=== PATIENT | male | born 1965 | race Caucasian/White ===

== ENCOUNTER → 2017-05-23 | Outpatient (CLI) | payer BC ==
[~2017-05-23] MED LIST: CIPR-249 PO; FLAG500T PO
--- NOTE | 2017-05-24 07:31 | REP ---
Clinical: Pain and lower extremity varicosities . Technique: Patino scale and color Doppler evaluation using linear high frequency transducer including reflux study. Findings: Ultrasound examination of the right and left lower extremity deep venous structures from the common femoral vein to the popliteal vein demonstrates normal compressibility flow and wave patterns in response to respiration and augmentation. There is no evidence for deep venous thrombosis. Reflux study of the right lower extremity demonstrates reflux through the deep venous system including common femoral vein, superficial femoral vein and popliteal vein. Reflux is also noted through the greater saphenous vein (GSV) and lower saphenous vein (LSV). Specifically, at the saphenofemoral junction the GSV measures 12.2 mm diameter with reflux duration of 3.2 seconds; the mid GSV measures 6.3 mm diameter with reflux duration of 3.3 seconds; distal GSV at the knee measures 4.9 mm diameter with reflux duration of 3.9 seconds. LSV measures 3.3 mm diameter with reflux duration 3.6 seconds. Collateral vessels at the level of the proximal calf are identified and exhibit reflux. Reflux study of the left lower extremity demonstrates reflux through the greater saphenous vein (GSV) and lower saphenous vein (LSV). Specifically, at the saphenofemoral junction the GSV measures 7.6 mm diameter with reflux duration of 4.5 seconds; the mid GSV measures 4.9 mm diameter with reflux duration of 1.5 seconds; distal GSV at the knee measures 4.5 mm diameter with reflux duration of 2.6 seconds. No reflux noted through the deep venous system or the LSV. Collateral vessels from the distal greater saphenous vein are identified and exhibit reflux during respiration. Impression: No evidence for deep venous thrombosis. Bilateral lower extremity reflux as described above. Signed by Dipak Mcintyre MD 05/24/2017 07:22 A
== END ==
LOC: M RAD 13:03
PROVIDERS: ATTEND Surgery Vascular Surgery
DX: I83.893 Varicose veins of bilateral lower extremities with other complications (principal)

== ENCOUNTER → 2017-06-20 | Outpatient (REF) ==
--- NOTE | 2017-06-20 09:34 | PFTRPT ---
Tech: Maryellen Holley IT RISK ANALYST Age: 52 Sex: Male Race: Height: 69.00 Inches Weight: 200.00 Lbs BSA: 2.07 PULMONARY FUNCTION REPORT ORDERING PROVIDER: NANDO Goddard DATE OF SERVICE: 06/20/17 SPIROMETRY: Pre and post bronchodilator study of excellent technical quality. The forced vital capacity is normal. The FEV1 is in proportion. The obstructive index is, therefore, normal. FLOW VOLUME LOOP: The expiratory limb of the flow volume loop is normal. LUNG VOLUMES: The total lung capacity is normal. The residual volume raises a question of air trapping. DIFFUSION CAPACITY: The diffusion capacity is normal. HEMOGLOBIN: No hemoglobin is available for correction. AIRWAY MECHANICS: Airways resistance and conductance are normal. IMPRESSION: Cannot rule out a degree of air trapping; otherwise, normal study. MTDD
== END ==
LOC: EDSTATUS 06-07 09:42 → M CARPUL 08:41
PROVIDERS: ATTEND Nurse Practitioner Adult Health
DX: Z02.89 Encounter for other administrative examinations (principal)

== ENCOUNTER 2018-06-01 06:38 | Emergency (ER) | payer BC ==
[2018-06-01] MEDS: LISSAMINE GREEN OPHTH 1.5 MG STRIP OD (07:12)
[2018-06-01] MEDS: TETRACAINE 0.5% OPHTH SOLN 4ML OD (07:12)
[2018-06-01] MEDS: ACETAMINOPHEN 325 MG TAB PO (07:45)
[2018-06-01] MEDS: ERYTHROMYCIN OPHTH OINT OD (07:45)
== END 2018-06-01 08:21 | disposition home or self-care (01) ==
LOC: M ED 06:38
DX: S05.01XA Injury of conjunctiva and corneal abrasion without foreign body, right eye, initial encounter (principal); X58.XXXA Exposure to other specified factors, initial encounter; Y92.89 Other specified places as the place of occurrence of the external cause
CPT/HCPCS: 99283

== ENCOUNTER → 2018-06-07 | Outpatient (REF) | payer BC | LOC: M CARPUL 08:05 | DX: Z00.00 Encounter for general adult medical examination without abnormal findings (principal) ==

== ENCOUNTER → 2019-10-19 | Outpatient (CLI) | payer BC ==
[~2019-10-19] MED LIST changes: +ERYT1OIN26 OD; +RA T500C2 PO
--- NOTE | 2019-10-19 18:21 | REP ---
Right lower extremity deep vein duplex ultrasound: The deep veins demonstrate normal compression, normal Doppler color flow and normal Doppler waveforms with respiration and augmentation from the popliteal vein to the common femoral vein. 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 There is slow flow through this area, however there is no thrombus. The aneurysm compresses. Impression: There is no deep vein thrombus. Electronically Signed by Gary Solis MD 10/19/2019 06:13 P
--- NOTE | 2019-10-20 06:50 | REP ---
Right groin soft tissue ultrasound: History: Lymph nodes versus DVT. Right upper leg swelling. Localized swelling mass and lump. Findings: The right groin palpable area is scanned. There are two lymph nodes in the right groin measuring 2.5 x 0.8 x 1.4 cm and 0.7 x 0.4 x 0.7 cm. These have preserved echogenic hilar architecture. At the level of the lump, there is also evidence of a venous aneurysmal dilation of the greater saphenous vein proximally. This measures 2.1 cm AP x 4.3 cm in length. The greater saphenous vein measures 7 mm in AP dimension distal to the aneurysmal segment and 6 mm in AP dimension above the aneurysmal segment. Impression: Two normal-appearing lymph nodes in the right groin. 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 Electronically Signed by Maximilian Harris MD 10/20/2019 08:33 A
== END ==
LOC: M RAD 14:55
PROVIDERS: ATTEND Surgery
DX: I72.9 Aneurysm of unspecified site (principal); R22.9 Localized swelling, mass and lump, unspecified; M79.604 Pain in right leg

== ENCOUNTER → 2019-11-16 | Outpatient (CLI) | payer BC ==
--- NOTE | 2019-11-16 08:21 | REP ---
Bilateral lower extremity deep vein duplex ultrasound: The deep veins demonstrate normal compression, normal Doppler color flow and normal Doppler waveforms with respiration augmentation from the popliteal veins to the common femoral veins bilaterally. However, all of these wave forms are pulsatile bilaterally. This may indicate high right-sided cardiac pressures. Impression: There is no deep vein thrombus in the right or left lower extremities. However, all venous wave forms are pulsatile. This may indicate high right sided cardiac meters. Lower Extremity Venous Reflux: Positive reflux is greater than 0.5 seconds. Right Reflux Left Reflux CFV Reflux no no Ant. Acc. GSV Present no no Reflux no no Greater saph/fem junction -- mm yes 5.8 mm yes Greater saph vein mid thigh -- mm yes 3.2 mm yes Greater saph vein at knee --mm yes 3.3 mm yes SFV PROX no no SFV MID no no SFV DISTAL no no POPLITEAL VEIN no no LSV 3.4. mm no 1.6 mm no Reflux duration : Greater saphenous vein at the saphenous/femoral junction: Right 1.6 seconds, left 0.9 seconds. Greater saphenous vein and mid thigh a: Right to 0.6 seconds, left 3.0 seconds. Greater saphenous vein and knee: Right 1.8 seconds left 2.0 seconds. There is pulsatile venous flow throughout the lower extremities bilaterally, likely secondary to increased right sided cardiac pressure. Reflux is observed with the patient standing during Valsalva maneuver. Electronically Signed by Gary Solis MD 11/16/2019 08:12 A
== END ==
LOC: M RAD 06:08
PROVIDERS: ATTEND Physician Assistant
DX: I83.811 Varicose veins of right lower extremity with pain (principal); I87.2 Venous insufficiency (chronic) (peripheral)

== ENCOUNTER 2019-11-22 10:08 | Day surgery (SDC) | payer BC ==
[~2019-11-22] VITALS: Ht 177.8 cm; Wt 81.6 kg
[~2019-11-22 10:08] MED LIST changes: +NS 1,000 ML IV ONE
[2019-11-22] MEDS ORDERED: LIDOCAINE 2% INJ 100 MG/5 ML SDV (FOR ANES.) As Ordered ONE (10:18)
[2019-11-22] MEDS ORDERED: propofoL 200 MG/20 ML VIAL As Ordered ONE (11:55)
--- NOTE | 2019-11-22 12:13 | ROOR ---
Patient Name: Luis Putnam Procedure Date: 11/22/2019 11:54 AM Date of : 1965 Age: 54 Room: [facility] Gender: Male Note Status: Finalized Procedure: Colonoscopy Indications: Screening patient at increased risk: Family history of colorectal cancer in multiple 1st-degree relatives Providers: Jax Smith Jr, MD Referring MD: Domitila Still NP Requesting Provider: Medicines: Propofol per Anesthesia Complications: No immediate complications. Procedure: Pre-Anesthesia Assessment: - Prior to the procedure, a History and Physical was performed, and patient medications and allergies were reviewed. The patient is competent. The risks and benefits of the procedure and the sedation options and risks were discussed with the patient. All questions were answered and informed consent was obtained. Patient identification and proposed procedure were verified by the physician and the nurse in the pre-procedure area and in the procedure room. Mental Status Examination: alert and oriented. Airway Examination: normal oropharyngeal airway and neck mobility. Respiratory Examination: clear to auscultation. CV Examination: normal. ASA Grade Assessment: II - A patient with mild systemic disease. After reviewing the risks and benefits, the patient was deemed in satisfactory condition to undergo the procedure. The anesthesia plan was to use moderate sedation / analgesia (conscious sedation). Immediately prior to administration of medications, the patient was re-assessed for adequacy to receive sedatives. The heart rate, respiratory rate, oxygen saturations, blood pressure, adequacy of pulmonary ventilation, and response to care were monitored throughout the procedure. The physical status of the patient was re-assessed after the procedure. The Colonoscope was introduced through the anus and advanced to the cecum, identified by appendiceal orifice and ileocecal valve. The colonoscopy was performed without difficulty. The patient tolerated the procedure well. The quality of the bowel preparation was adequate. Findings: The rectum, recto-sigmoid colon, sigmoid colon, descending colon, transverse colon, ascending colon, cecum, appendiceal orifice and ileocecal valve appeared normal. Impression: - The rectum, recto-sigmoid colon, sigmoid colon, descending colon, transverse colon, ascending colon, cecum, appendiceal orifice and ileocecal valve are normal. - No specimens collected. Recommendation: - Discharge patient to home (ambulatory). - Repeat colonoscopy in 5 years for screening purposes. Jax Smith MD Jax Smith Jr, MD 11/22/2019 12:13:25 PM Electronically signed by Jax Smith Jr, MD Number of Addenda: 0 Note Initiated On: 11/22/2019 11:54 AM Estimated Blood Loss: Estimated blood loss: none.
[2019-11-22 13:35] VITALS: BP 131/84
== END 2019-11-22 12:50 | disposition home or self-care (01) ==
LOC: M OPP 10:08
PROVIDERS: ATTEND Surgery
DX: Z12.11 Encounter for screening for malignant neoplasm of colon (principal); Z80.0 Family history of malignant neoplasm of digestive organs

== ENCOUNTER → 2020-03-14 | Outpatient (REF) | payer BC ==
[~2020-03-14] MED LIST changes: -ERYT1OIN26 OD; +ERYT5OIN25 OD; -NS 1,000 ML IV ONE
[2020-03-14 18:14] LABS: CRYSTALS, BODY FLUID NONE SEEN (NONE SEEN); SOURCE, BODY FLUID CRYSTALS LFT KNEE
[2020-03-14 18:16] LABS: SOURCE, BODY FLUID LFT KNEE; SYNOVIAL FLUID COLOR YELLOW (YELLOW)
[2020-03-14 18:44] LABS: SOURCE, BODY FLUID GLUCOSE LFT KNEE
[2020-03-15 06:37] LABS: BODY FLUID RHEUMATOID SCREEN NEGATIVE (NEGATIVE)
[2020-03-15 06:39] LABS: MUCIN CLOT TEST 4+ (4+)
== END ==
LOC: M LAB REF 17:04
PROVIDERS: ATTEND Physician Assistant
DX: M71.22 Synovial cyst of popliteal space [Baker], left knee (principal); M25.462 Effusion, left knee

== ENCOUNTER → 2020-03-17 | Outpatient (CLI) | payer BC ==
[2020-03-17 08:00] LABS: BASO % 0.6 % (0.0-1.0); EOS # 0.1 10^3/uL (0.0-0.5); EOS % 1.5 % (0.0-3.0); HEMATOCRIT 41.5 % (42.0-52.0); HEMOGLOBIN 14.2 g/dl (13.5-17.5); LYMPH # 1.6 10^3/uL (1.5-5.0); LYMPH % 32.2 % (24.0-44.0); MEAN CORPUSCULAR HEMOGLOBIN 33.6 pg (27.0-33.0); MEAN CORPUSCULAR HGB CONC 34.2 g/dl (32.0-36.5); MEAN CORPUSCULAR VOLUME 98.3 fl (80.0-96.0); MONO # 0.6 10^3/uL (0.0-0.8); MONO % 13.1 % (0.0-5.0); NEUTROPHILS # 2.5 10^3/uL (1.5-8.5); NEUTROPHILS % 52.4 % (36.0-66.0); PLATELET COUNT, AUTOMATED 263 10^3/uL (150-450); RED BLOOD COUNT 4.22 10^6/uL (4.30-6.10); WHITE BLOOD COUNT 4.8 10^3/uL (4.0-10.0)
[2020-03-17 08:55] LABS: ERYTHROCYTE SEDIMENTATION RATE 12 mm/hr (0-20)
== END ==
LOC: M LAB 07:18
PROVIDERS: ATTEND Orthopaedic Surgery Sports Medicine
DX: M71.22 Synovial cyst of popliteal space [Baker], left knee (principal)

== ENCOUNTER → 2020-03-19 | Outpatient (CLI) | payer BC ==
[2020-03-20 19:07] LABS: Lyme Disease IgG/IgM Antibodie <0.91 ISR (0.00-0.90); Lyme Disease IgM Ab Quantitati <0.80 index (0.00-0.79)
== END ==
LOC: M LAB 10:01
PROVIDERS: ATTEND Orthopaedic Surgery Sports Medicine
DX: M71.22 Synovial cyst of popliteal space [Baker], left knee (principal)

== ENCOUNTER 2021-02-03 11:07 | Emergency (ER) | payer BC ==
[~2021-02-03] VITALS: Ht 180.3 cm; Wt 80.5 kg
[2021-02-03] MEDS ORDERED: NS 1,000 ML IV ONE (12:10)
[2021-02-03 12:38] LABS: APPEARANCE, URINE CLEAR (CLEAR); BACTERIA, URINE AUTO NEGATIVE (NEGATIVE); BILIRUBIN, URINE AUTO NEGATIVE (NEGATIVE); BLOOD, URINE BLOOD NEGATIVE (NEGATIVE); COLOR, URINE YELLOW (YELLOW); GLUCOSE, URINE (UA) AUTO NEGATIVE (NEGATIVE); KETONE, URINE AUTO 1+ mg/dL (NEGATIVE); LEUKOCYTE ESTERASE, URINE AUTO NEGATIVE (NEGATIVE); MUCUS, URINE SMALL (NEGATIVE); NITRITE, URINE AUTO NEGATIVE (NEGATIVE); PROTEIN, URINE AUTO 1+ mg/dL (NEGATIVE); RBC, URINE AUTO 1 /HPF (0-3); SPECIFIC GRAVITY URINE AUTO 1.025 (1.002-1.035); SQUAMOUS EPITHELIAL CELL UR AU 0 /HPF (0-6); UROBILINOGEN, URINE AUTO 0.2 mg/dL (0.0-2.0); WBC, URINE AUTO 1 /HPF (0-3)
[2021-02-03 12:43] LABS: BASO % 0.4 % (0.0-1.0); EOS % 0.2 % (0.0-3.0); HEMATOCRIT 44.4 % (42.0-52.0); LYMPH # 0.7 10^3/uL (1.5-5.0); LYMPH % 14.4 % (24.0-44.0); MEAN CORPUSCULAR HEMOGLOBIN 32.8 pg (27.0-33.0); MEAN CORPUSCULAR HGB CONC 33.8 g/dl (32.0-36.5); MEAN CORPUSCULAR VOLUME 97.2 fl (80.0-96.0); MONO # 0.5 10^3/uL (0.0-0.8); MONO % 9.7 % (2.0-8.0); NEUTROPHILS # 3.5 10^3/uL (1.5-8.5); NEUTROPHILS % 75.1 % (36.0-66.0); PLATELET COUNT, AUTOMATED 123 10^3/uL (150-450); RED BLOOD COUNT 4.57 10^6/uL (4.30-6.10); WHITE BLOOD COUNT 4.7 10^3/uL (4.0-10.0)
[2021-02-03 13:19] LABS: ALBUMIN 4.1 GM/DL (3.2-5.2); ALT/SGPT 158 U/L (12-78); BILIRUBIN,DIRECT 0.1 MG/DL (0.0-0.2); BILIRUBIN,TOTAL 0.6 MG/DL (0.2-1.0); BLOOD UREA NITROGEN 14 MG/DL (7-18); CALCIUM LEVEL 9.1 MG/DL (8.5-10.1); CARBON DIOXIDE LEVEL 28 MEQ/L (21-32); CHLORIDE LEVEL 102 MEQ/L (98-107); CREATININE FOR GFR 0.58 MG/DL (0.70-1.30); GLOMERULAR FILTRATION RATE > 60.0 (>56); GLUCOSE, FASTING 89 MG/DL (70-100); LIPASE 80 U/L (73-393); POTASSIUM SERUM 5.9 MEQ/L (3.5-5.1); SODIUM LEVEL 137 MEQ/L (136-145); TOTAL PROTEIN 8.5 GM/DL (6.4-8.2)
[2021-02-03 14:29] LABS: HEPATITIS B SURFACE ANTIGEN NEGATIVE (NEGATIVE)
--- NOTE | 2021-02-03 14:52 | REP ---
INDICATION: nausea vomiting, elevated lfts. COMPARISON: None. TECHNIQUE: Real-time sonographic evaluation of right upper quadrant performed. FINDINGS: The gallbladder demonstrates no evidence of intraluminal sludge or calculi, wall thickening or pericholecystic fluid. There is no intrahepatic or extrahepatic biliary dilatation, common bile duct measures 4 mm in maximum diameter. Liver demonstrates diffuse heterogeneous increased echotexture compatible with diffuse fatty infiltration. Pancreas is grossly unremarkable, not optimally visualized due to overlying bowel gas. The right kidney demonstrates no hydronephrosis, with a normal size of 11.3 cm in length. No free fluid is seen. IMPRESSION: Diffuse fibrofatty infiltration of the liver. <Electronically signed by Gary Patino > 02/03/21 [id number]
[2021-02-03 14:58] LABS: HEPATITIS B CORE ANTIBODY IGM NEGATIVE (NEGATIVE)
[2021-02-03 14:59] LABS: HEPATITIS A ANTIBODY IGM NEGATIVE (NEGATIVE)
[2021-02-03] MEDS ORDERED: ONDA4TAB6 PO (15:26)
[2021-02-03 15:29] VITALS: BP 153/92
== END 2021-02-03 15:37 | disposition home or self-care (01) ==
LOC: M ED 11:07
DX: R11.2 Nausea with vomiting, unspecified (principal); R19.7 Diarrhea, unspecified; K76.0 Fatty (change of) liver, not elsewhere classified; R94.5 Abnormal results of liver function studies

== ENCOUNTER 2021-03-22 15:06 | Emergency (ER) | payer BC ==
[~2021-03-22] VITALS: Ht 172.7 cm; Wt 76.3 kg
[~2021-03-22 15:06] MED LIST changes: +ONDA4TAB6 PO
--- NOTE | 2021-03-22 15:58 | REP ---
INDICATION: ams COMPARISON: None. TECHNIQUE: Axial noncontrast images from the skull base to the vertex with coronal reformations. This CT examination was performed using the following dose reduction techniques: Automated exposure control, adjustment of mA and/or kv according to the patient's size, and use of iterative reconstruction technique. FINDINGS: The ventricles, sulci, and cisterns are normal in position and appearance. Patino-white differentiation is maintained. No acute intracranial hemorrhage, mass/mass effect, pathology or trauma/injury. No evidence for acute infarction. No extra-axial fluid collection. Calvarium is intact. Paranasal sinuses and mastoid air cells are clear. IMPRESSION: Normal noncontrast head CT. No evidence for acute intracranial pathology or trauma/injury. <Electronically signed by Dipak Mcintyre > 03/22/21 [id number]
--- NOTE | 2021-03-22 15:59 | REP ---
INDICATION: trauma COMPARISON: None. TECHNIQUE: Axial noncontrast images from the skull base to the thoracic inlet with coronal and sagittal re-formations This CT examination was performed using the following dose reduction techniques: Automated exposure control, adjustment of mA and/or kv according to the patient's size, and use of iterative reconstruction technique. FINDINGS: Alignment is maintained. Advanced multilevel degenerative changes include osteophytosis, endplate sclerosis and disc space narrowing along with facet hypertrophy. Spinal canal is patent. Posterior elements and spinous processes are intact. There is no evidence for acute fracture/compression injury or subluxation. IMPRESSION: Advanced multilevel degenerative spondylosis. <Electronically signed by Dipak Mcintyre > 03/22/21 [id number]
[2021-03-22 16:28] LABS: BASO % 0.6 % (0.0-1.0); EOS % 0.2 % (0.0-3.0); HEMATOCRIT 42.6 % (42.0-52.0); HEMOGLOBIN 14.6 g/dl (13.5-17.5); LYMPH % 19.5 % (24.0-44.0); MEAN CORPUSCULAR HEMOGLOBIN 33.6 pg (27.0-33.0); MEAN CORPUSCULAR HGB CONC 34.3 g/dl (32.0-36.5); MEAN CORPUSCULAR VOLUME 98.2 fl (80.0-96.0); MONO # 0.5 10^3/uL (0.0-0.8); MONO % 10.2 % (2.0-8.0); NEUTROPHILS # 3.7 10^3/uL (1.5-8.5); NEUTROPHILS % 69.3 % (36.0-66.0); PLATELET COUNT, AUTOMATED 159 10^3/uL (150-450); RED BLOOD COUNT 4.34 10^6/uL (4.30-6.10); WHITE BLOOD COUNT 5.3 10^3/uL (4.0-10.0)
[2021-03-22 16:55] LABS: ERYTHROCYTE SEDIMENTATION RATE 8 mm/hr (0-20)
[2021-03-22 16:56] LABS: AMPHETAMINES LEVEL URINE NEGATIVE (NEGATIVE); BARBITURATES URINE NEGATIVE (NEGATIVE); BENZODIAZEPINES URINE NEGATIVE (NEGATIVE); CANNABINOIDS URINE NEGATIVE (NEGATIVE); COCAINE METABOLITE URINE NEGATIVE (NEGATIVE); METHADONE URINE NEGATIVE (NEGATIVE); OPIATES URINE NEGATIVE (NEGATIVE); PHENCYCLIDINE URINE NEGATIVE (NEGATIVE)
--- NOTE | 2021-03-22 16:58 | REP ---
INDICATION: Altered Mental Status COMPARISON: 07/22/2016 TECHNIQUE: Portable AP view of the chest FINDINGS: The mediastinum and cardiac silhouette are stable and within normal limits for portable technique. The lung russell are clear without acute consolidation, effusion, or pneumothorax. Skeletal structures are intact. IMPRESSION: No acute cardiopulmonary process appreciated. <Electronically signed by Dipak Mcintyre > 03/22/21 [id number]
[2021-03-22 17:23] LABS: ALBUMIN 4.2 GM/DL (3.2-5.2); ALT/SGPT 98 U/L (12-78); BILIRUBIN,DIRECT 0.2 MG/DL (0.0-0.2); BILIRUBIN,TOTAL 0.4 MG/DL (0.2-1.0); C REACTIVE PROTEIN QUANTITATIV < 0.30 MG/DL (0.00-0.30); ETHYL ALCOHOL (ETHANOL) 0.405 % (0.000-0.010); TOTAL PROTEIN 7.8 GM/DL (6.4-8.2)
[2021-03-22 17:33] VITALS: BP 134/81
--- NOTE | 2021-03-22 21:17 | ECGEPIP ---
[facility] - ED Test Date: 2021-03-22 Pat Name: GEOVANNY EMERY Department: Room: - Gender: Male [employer]it[employer]: : 1965 Requested By: Ignacio Lawrence Order Number: [id number] Reading MD: Phyllis Lyons Measurements Intervals [place] Rate: 108 P: 45 VA: 154 QRS: 41 QRSD: 90 T: 32 QT: 358 QTc: 479 Interpretive Statements Sinus tachycardia NSTTW abnormalities prolonged qtc No prior Electronically Signed on 03-22-2021 21:17:31 EDT by Phyllis Lyons
== END 2021-03-22 17:57 | disposition home or self-care (01) ==
LOC: M ED 15:06
DX: F10.129 Alcohol abuse with intoxication, unspecified (principal); Y90.2 Blood alcohol level of 40-59 mg/100 ml; S00.03XA Contusion of scalp, initial encounter; X58.XXXA Exposure to other specified factors, initial encounter; Y92.89 Other specified places as the place of occurrence of the external cause

== ENCOUNTER → 2021-05-29 | Outpatient (REF) | LOC: M LABSMTC 10:10 | PROVIDERS: ATTEND Pediatrics | DX: Z20.822 Contact with and (suspected) exposure to COVID-19 (principal) ==

== ENCOUNTER → 2021-09-02 | Outpatient (REF) | payer BC | LOC: M LAB REF 16:15 | PROVIDERS: ATTEND Internal Medicine | DX: R19.7 Diarrhea, unspecified (principal) ==

== ENCOUNTER → 2021-09-21 | Outpatient (CLI) | payer BC ==
[~2021-09-21] MED LIST changes: +GASTROGRAFIN SOLUTION 30ML (Q9963) As Ordered ONE; +ISOVUE-370 76% 100ML VIAL As Ordered ONE
== END ==
LOC: M RAD 14:23
PROVIDERS: ATTEND Surgery
DX: R10.84 Generalized abdominal pain (principal); R19.7 Diarrhea, unspecified
CPT/HCPCS: 74177; Q9963; Q9967

== ENCOUNTER → 2021-12-31 | Outpatient (REF) ==
[~2021-12-31] MED LIST changes: -GASTROGRAFIN SOLUTION 30ML (Q9963) As Ordered ONE; -ISOVUE-370 76% 100ML VIAL As Ordered ONE
== END ==
LOC: M EMP 07:21
PROVIDERS: ATTEND Family Medicine
DX: Z20.822 Contact with and (suspected) exposure to COVID-19 (principal)

== ENCOUNTER → 2022-03-08 | Outpatient (REF) ==
[2022-03-08 09:43] LABS: RSV AMPLIFICATION NEGATIVE (NEGATIVE)
== END ==
LOC: M EMP 08:02
PROVIDERS: ATTEND Family Medicine
DX: Z11.52 Encounter for screening for COVID-19 (principal)

== ENCOUNTER 2022-04-19 10:18 | Emergency (ER) | payer OTHER, BC ==
[~2022-04-19] VITALS: Ht 175.3 cm; Wt 79.1 kg
[2022-04-19 10:18] VITALS: BP 134/87
[2022-04-19] MEDS ORDERED: BOOSTRIX/ADACEL VACCINE (DIPHTH/PERTUSS/ACELL/TETANUS) 0.5ML SYR IM ONE (11:15)
[2022-04-19] MEDS ORDERED: BACITRACIN OINTMENT 30GM TUBE TOP ONE (11:30)
[2022-04-19] MEDS ORDERED: LIDOCAINE 2% MDV 20ML VIAL SC ONE (11:55)
== END 2022-04-19 15:05 | disposition home or self-care (01) ==
LOC: M ED 10:18
DX: S61.011A Laceration without foreign body of right thumb without damage to nail, initial encounter (principal); W26.8XXA Contact with other sharp object(s), not elsewhere classified, initial encounter; Y92.89 Other specified places as the place of occurrence of the external cause

== ENCOUNTER → 2022-04-23 | Outpatient (REF) | LOC: M EMP 09:56 | PROVIDERS: ATTEND Family Medicine | DX: Z11.52 Encounter for screening for COVID-19 (principal) ==

== ENCOUNTER → 2022-06-11 | Outpatient (REF) | payer BC ==
[2022-06-11 18:08] LABS: VITAMIN B12 LEVEL 375 PG/ML (247-911)
== END ==
LOC: M LAB REF 16:01
PROVIDERS: ATTEND Internal Medicine
DX: R41.3 Other amnesia (principal)

== ENCOUNTER → 2022-06-24 | Outpatient (CLI) | payer BC | LOC: M PLAIMG 12:53 | PROVIDERS: ATTEND Internal Medicine | DX: F03.90 Unspecified dementia, unspecified severity, without behavioral disturbance, psychotic disturbance, mood disturbance, and anxiety (principal) ==

== ENCOUNTER → 2022-07-06 | Outpatient (CLI) | payer BC | LOC: M SOG 08:20 | PROVIDERS: ATTEND Orthopaedic Surgery | DX: M25.512 Pain in left shoulder (principal); M54.2 Cervicalgia ==

== ENCOUNTER 2022-07-22 09:48 | Outpatient (RCR) | payer BC | END 2022-07-26 23:59 | disposition home or self-care (01) | LOC: M PT 09:48 | PROVIDERS: ATTEND Orthopaedic Surgery | DX: M25.512 Pain in left shoulder (principal); M67.814 Other specified disorders of tendon, left shoulder ==

== ENCOUNTER → 2022-08-09 | Outpatient (REF) ==
[2022-08-09 12:15] LABS: RSV AMPLIFICATION NEGATIVE (NEGATIVE)
== END ==
LOC: M EMP 10:50
PROVIDERS: ATTEND Family Medicine
DX: Z20.828 Contact with and (suspected) exposure to other viral communicable diseases (principal)

== ENCOUNTER 2022-08-23 07:39 | Outpatient (RCR) | payer BC | END 2022-08-25 | LOC: M PT 07:39 | PROVIDERS: ATTEND Orthopaedic Surgery | DX: M25.512 Pain in left shoulder (principal); M67.814 Other specified disorders of tendon, left shoulder ==

== ENCOUNTER → 2022-09-10 | Outpatient (REF) | payer BC | LOC: M LAB REF 16:52 | PROVIDERS: ATTEND Internal Medicine | DX: E87.1 Hypo-osmolality and hyponatremia (principal) ==

== ENCOUNTER → 2022-09-29 | Outpatient (REF) | LOC: M EMP 09:38 | PROVIDERS: ATTEND Family Medicine | DX: Z11.52 Encounter for screening for COVID-19 (principal) ==

== ENCOUNTER → 2023-01-05 | Outpatient (CLI) | payer BC | LOC: M RAD 10:51 | PROVIDERS: ATTEND Internal Medicine | DX: R06.02 Shortness of breath (principal) ==

== ENCOUNTER → 2023-02-10 | Outpatient (REF) ==
[2023-02-10 11:34] LABS: RSV AMPLIFICATION NEGATIVE (NEGATIVE)
== END ==
LOC: M EMP 08:45
PROVIDERS: ATTEND Family Medicine
DX: J11.1 Influenza due to unidentified influenza virus with other respiratory manifestations (principal)

== ENCOUNTER → 2023-03-11 | Outpatient (REF) | payer BC ==
[2023-03-11 17:53] LABS: FERRITIN 276.7 NG/ML (10.5-307.3)
[2023-03-11 17:54] LABS: PERCENT SATURATION 30.9 % (19.7-50.0)
== END ==
LOC: M LAB REF 16:43
PROVIDERS: ATTEND Internal Medicine
DX: R74.01 Elevation of levels of liver transaminase levels (principal)

== ENCOUNTER → 2023-03-23 | Outpatient (CLI) | payer BC | LOC: M RAD 07:24 | PROVIDERS: ATTEND Internal Medicine | DX: R74.01 Elevation of levels of liver transaminase levels (principal) ==

== ENCOUNTER → 2023-07-21 | Outpatient (REF) | payer BC ==
[2023-07-21 15:32] LABS: C REACTIVE PROTEIN QUANTITATIV < 0.40 MG/DL (<1.0)
[2023-07-21 15:33] LABS: IMMUNOGLOBULIN A 230.5 MG/DL (40-350)
[2023-07-21 18:05] LABS: HEPATITIS B CORE ANTIBODY IGM NEGATIVE (NEGATIVE); HEPATITIS C VIRUS ABY INDEX 0.06 INDEX (<0.8)
== END ==
LOC: M LAB REF 12:09
PROVIDERS: ATTEND Internal Medicine
DX: K76.0 Fatty (change of) liver, not elsewhere classified (principal); R74.01 Elevation of levels of liver transaminase levels; E87.1 Hypo-osmolality and hyponatremia; I83.813 Varicose veins of bilateral lower extremities with pain

== ENCOUNTER → 2023-08-17 | Outpatient (REF) ==
[2023-08-17 14:57] LABS: RSV AMPLIFICATION NEGATIVE (NEGATIVE)
== END ==
LOC: M EMP 13:33
PROVIDERS: ATTEND Family Medicine
DX: Z11.52 Encounter for screening for COVID-19 (principal)

== ENCOUNTER → 2023-08-19 | Outpatient (REF) ==
[2023-08-19 15:34] LABS: RSV AMPLIFICATION NEGATIVE (NEGATIVE)
== END ==
LOC: M EMP 12:09
PROVIDERS: ATTEND Family Medicine
DX: Z20.828 Contact with and (suspected) exposure to other viral communicable diseases (principal)

== ENCOUNTER → 2023-11-01 | Outpatient (CLI) | payer BC | LOC: M OUTALCOH 13:45 | PROVIDERS: ATTEND Psychiatry & Neurology Psychiatry | DX: Z03.89 Encounter for observation for other suspected diseases and conditions ruled out (principal) ==

== ENCOUNTER 2024-11-08 13:08 | Inpatient (IN) | payer OTHER ==
[~2024-11-08] VITALS: Ht 182.9 cm; Wt 75.0 kg
[~2024-11-08 13:08] MED LIST changes: -AMIO100T4 PO; -BISO5TAB14 PO; -CALC500T61 PO; -ESSETAB4 PO; -FOLI1TAB11 PO; -MAGN400T2 PO; -POTA-298 PO; -TALK1KIT MC; -THIA100TA PO
[2024-11-08 14:03] LABS: BASO % 0.1 % (0.0-1.0); EOS % 0.1 % (0.0-3.0); HEMATOCRIT 36.5 % (42.0-52.0); HEMOGLOBIN 13.2 g/dl (13.5-17.5); MEAN CORPUSCULAR HEMOGLOBIN 38.2 pg (27.0-33.0); MEAN CORPUSCULAR HGB CONC 36.2 g/dl (32.0-36.5); MEAN CORPUSCULAR VOLUME 105.5 fl (80.0-96.0); MONO # 0.7 10^3/uL (0.0-0.8); MONO % 9.8 % (2.0-8.0); NEUTROPHILS # 5.2 10^3/uL (1.5-8.5); NEUTROPHILS % 74.4 % (36.0-66.0); PLATELET COUNT, AUTOMATED 192 10^3/uL (150-450); RED BLOOD COUNT 3.46 10^6/uL (4.30-6.10)
[2024-11-08 14:30] LABS: CPK CREATINE PHOSPHOKINASE 116 U/L (46-171)
[2024-11-08] MEDS: POTASSIUM CHLORIDE 10MEQ SR TABLET PO ONE ×3 (14:37→21:56)
[2024-11-08] MEDS: NS (Normal Saline) 0.9% 1,000 ML IV SCH (14:37)
[2024-11-08] MEDS: KCL 10MEQ/100ML SWI (KRUN) 10 MEQ in IV 1 EA IV SCH ×2 (14:37→23:02)
[2024-11-08 15:02] LABS: HIV 1&2 SCREEN NEGATIVE (NEGATIVE)
[2024-11-08] MEDS ORDERED: HOME MED LIST COMPLETE! XX SCH (15:20)
[2024-11-08 15:31] LABS: ALBUMIN 3.1 G/DL (3.2-5.2); ALKALINE PHOSPHATASE 159 U/L (40-129); ALT/SGPT 40 U/L (7.0-40); AST/SGOT 91 U/L (<34); BILIRUBIN,TOTAL 2.5 MG/DL (0.3-1.2); BLOOD UREA NITROGEN 9 MG/DL (9-23); CALCIUM LEVEL 8.5 MG/DL (8.3-10.6); CARBON DIOXIDE LEVEL 32 MMOL/L (20-31); CHLORIDE LEVEL 91 MMOL/L (98-107); CK-MB VALUE MASS 1.1 NG/ML (<3.6); CREATININE FOR GFR 0.42 MG/DL (0.70-1.30); GLOMERULAR FILTRATION RATE > 60.0 (>49); GLUCOSE, FASTING 123 MG/DL (74-106); MB/CK RELATIVE INDEX 0.94 (< OR =4); POTASSIUM SERUM 2.4 MMOL/L (3.5-5.1); SODIUM LEVEL 140 MMOL/L (136-145); TOTAL PROTEIN 7.3 G/DL (5.7-8.2)
[2024-11-08] MEDS: MAG SULF 1GM/100ML (MAG RUN) 1 GM in IV 1 EA IV SCH (16:47)
[2024-11-08 17:14] LABS: ETHYL ALCOHOL (ETHANOL) < 0.003 % (0.000-0.010)
[2024-11-08 17:15] LABS: MAGNESIUM LEVEL 1.2 MG/DL (1.8-2.4)
[2024-11-08] MEDS: ONDANSETRON 4MG 2ML VIAL IV ONE (17:35)
[2024-11-08] MEDS: ASPIRIN 325 MG TAB PO ONE (18:27)
[2024-11-08 18:46] LABS: INR 1.27; PROTHROMBIN TIME 16.2 SECONDS (12.5-14.5)
[2024-11-08 21:08] LABS: FREE T4 1.02 NG/DL (0.89-1.76); THYROID STIMULATING HORMONE 2.894 uIU/ML (0.55-4.78)
[2024-11-08 22:10] VITALS: BP 151/86; TEMP 97.7; O2SAT 94
[2024-11-08 22:43] LABS: BLOOD UREA NITROGEN 7 MG/DL (9-23); CALCIUM LEVEL 7.4 MG/DL (8.3-10.6); CARBON DIOXIDE LEVEL 33 MMOL/L (20-31); CHLORIDE LEVEL 99 MMOL/L (98-107); CREATININE FOR GFR 0.38 MG/DL (0.70-1.30); GLOMERULAR FILTRATION RATE > 60.0 (>49); GLUCOSE, FASTING 114 MG/DL (74-106); SODIUM LEVEL 141 MMOL/L (136-145)
[2024-11-08] MEDS: POTASSIUM CHLORIDE 10% LIQ 20MEQ/15ML UDC PO ONE (23:02)
[2024-11-08 23:09] LABS: MAGNESIUM LEVEL 1.6 MG/DL (1.8-2.4)
[2024-11-08] MEDS: MAG SULF 1GM/100ML (MAG RUN) 1 GM in IV 1 EA IV ONE (23:26)
[2024-11-08 23:59] VITALS: BP 109/63; TEMP 98.4; O2SAT 99
[2024-11-09] VITALS (25 sets, daily range): BP systolic 115–189; BP diastolic 72–106; TEMP 97.5–99.2; O2SAT 91–100
[2024-11-09 04:15] LABS: HEMATOCRIT 30.2 % (42.0-52.0); MEAN CORPUSCULAR HEMOGLOBIN 38.6 pg (27.0-33.0); MEAN CORPUSCULAR HGB CONC 35.8 g/dl (32.0-36.5); MEAN CORPUSCULAR VOLUME 107.9 fl (80.0-96.0); PLATELET COUNT, AUTOMATED 147 10^3/uL (150-450); WHITE BLOOD COUNT 5.1 10^3/uL (4.0-10.0)
[2024-11-09 04:22] LABS: HEMOGLOBIN 10.8 g/dl (13.5-17.5)
[2024-11-09 04:33] LABS: ALBUMIN 2.4 G/DL (3.2-5.2); ALKALINE PHOSPHATASE 121 U/L (40-129); ALT/SGPT 38 U/L (7.0-40); AST/SGOT 169 U/L (<34); BILIRUBIN,DIRECT 1.2 MG/DL (<0.4); BILIRUBIN,TOTAL 2.6 MG/DL (0.3-1.2); BLOOD UREA NITROGEN 5 MG/DL (9-23); CALCIUM LEVEL 7.4 MG/DL (8.3-10.6); CARBON DIOXIDE LEVEL 31 MMOL/L (20-31); CHLORIDE LEVEL 107 MMOL/L (98-107); CREATININE FOR GFR 0.51 MG/DL (0.70-1.30); GLOMERULAR FILTRATION RATE > 60.0 (>49); GLUCOSE, FASTING 108 MG/DL (74-106); MAGNESIUM LEVEL 1.8 MG/DL (1.8-2.4); POTASSIUM SERUM 4.3 MMOL/L (3.5-5.1); SODIUM LEVEL 141 MMOL/L (136-145); TOTAL PROTEIN 5.7 G/DL (5.7-8.2)
[2024-11-09] MEDS: MAG SULF 1GM/100ML (MAG RUN) 1 GM in IV 1 EA IV ONE (06:34)
[2024-11-09] MEDS ORDERED: LORazepam 2 MG TAB PO PRN (09:20)
[2024-11-09] MEDS ORDERED: MAGNESIUM SULFATE 1GM/100ML D5W BAG (10MG/ML) As Ordered ONE (10:39)
[2024-11-09] MEDS: MAG SULF 1GM/100ML (MAG RUN) 1 GM in IV 1 EA IV SCH (10:40)
[2024-11-09] MEDS ORDERED: MAG SULF 1GM/100ML (MAG RUN) 1 GM in IV 1 EA IV STA (10:42)
[2024-11-09] MEDS: AMIODARONE HCL 150 MG in IV 1 EA IV ONE (10:55)
[2024-11-09] MEDS: AMIODARONE HCL 360 MG in IV 1 EA IV SCH ×2 (11:17→17:17)
[2024-11-09] MEDS: CALCIUM GLUCONATE 1,000 MG in DEXTROSE 5% (D5W) MINI-BAG PLU 100 ML IV SCH (11:41)
[2024-11-09 11:43] LABS: ALBUMIN 2.7 G/DL (3.2-5.2); ALKALINE PHOSPHATASE 139 U/L (40-129); ALT/SGPT 44 U/L (7.0-40); AST/SGOT 165 U/L (<34); BILIRUBIN,TOTAL 2.7 MG/DL (0.3-1.2); BLOOD UREA NITROGEN 6 MG/DL (9-23); CALCIUM LEVEL 7.7 MG/DL (8.3-10.6); CARBON DIOXIDE LEVEL 24 MMOL/L (20-31); CHLORIDE LEVEL 106 MMOL/L (98-107); CREATININE FOR GFR 0.37 MG/DL (0.70-1.30); GLOMERULAR FILTRATION RATE > 60.0 (>49); GLUCOSE, FASTING 133 MG/DL (74-106); PHOSPHORUS LEVEL 2.4 MG/DL (2.4-5.1); POTASSIUM SERUM 3.5 MMOL/L (3.5-5.1); SODIUM LEVEL 140 MMOL/L (136-145); TOTAL PROTEIN 6.3 G/DL (5.7-8.2)
[2024-11-09] MEDS: FOLIC ACID 1MG TAB PO SCH (15:10)
[2024-11-09] MEDS: THIAMINE 100 MG TAB PO SCH (15:10)
[2024-11-09] MEDS: MULTIVITAMINS/MINERALS THERAP 1 TAB PO SCH (15:10)
[2024-11-09] MEDS: POTASSIUM CHLORIDE 10MEQ SR TABLET PO ONE ×3 (15:11→21:44)
[2024-11-09] MEDS: ENOXAPARIN 40MG/0.4ML SYRINGE (J1650 PER 10MG) SC SCH (15:12)
[2024-11-09 17:38] LABS: ACETONE/KETONE 0.16 MMOL/L (0.02-0.27)
[2024-11-09 18:01] LABS: BLOOD UREA NITROGEN < 5 MG/DL (9-23); CALCIUM LEVEL 7.9 MG/DL (8.3-10.6); CARBON DIOXIDE LEVEL 31 MMOL/L (20-31); CHLORIDE LEVEL 101 MMOL/L (98-107); CREATININE FOR GFR 0.41 MG/DL (0.70-1.30); GLOMERULAR FILTRATION RATE > 60.0 (>49); GLUCOSE, FASTING 101 MG/DL (74-106); POTASSIUM SERUM 3.4 MMOL/L (3.5-5.1); SODIUM LEVEL 139 MMOL/L (136-145)
[2024-11-10] VITALS (11 sets, daily range): BP systolic 111–151; BP diastolic 67–89; TEMP 98.2–99.4; O2SAT 90–95
[2024-11-10 05:39] LABS: IONIZED CALCIUM 4.4 MG/DL (4.5-5.3)
[2024-11-10 06:17] LABS: ALBUMIN 2.5 G/DL (3.2-5.2); ALKALINE PHOSPHATASE 133 U/L (40-129); ALT/SGPT 39 U/L (7.0-40); AST/SGOT 128 U/L (<34); BILIRUBIN,TOTAL 1.5 MG/DL (0.3-1.2); BLOOD UREA NITROGEN < 5 MG/DL (9-23); CALCIUM LEVEL 8.1 MG/DL (8.3-10.6); CARBON DIOXIDE LEVEL 29 MMOL/L (20-31); CHLORIDE LEVEL 101 MMOL/L (98-107); CREATININE FOR GFR 0.45 MG/DL (0.70-1.30); GLOMERULAR FILTRATION RATE > 60.0 (>49); GLUCOSE, FASTING 93 MG/DL (74-106); MAGNESIUM LEVEL 1.8 MG/DL (1.8-2.4); PHOSPHORUS LEVEL 1.9 MG/DL (2.4-5.1); POTASSIUM SERUM 4.9 MMOL/L (3.5-5.1); PTH INTACT 40.5 PG/ML (18.5-88.0); SODIUM LEVEL 137 MMOL/L (136-145); TOTAL PROTEIN 5.9 G/DL (5.7-8.2)
[2024-11-10] MEDS: AMIODARONE 200 MG TAB (PACERONE) PO SCH ×2 (08:01→20:07)
[2024-11-10] MEDS: CALCIUM GLUCONATE 1,000 MG in DEXTROSE 5% (D5W) MINI-BAG PLU 100 ML IV SCH (08:02)
[2024-11-10] MEDS: MAG SULF 1GM/100ML (MAG RUN) 1 GM in IV 1 EA IV SCH (09:14)
[2024-11-10] MEDS: BISOPROLOL FUM 2.5 MG PER 1/2TAB PO SCH (12:14)
[2024-11-10] MEDS: SODIUM PHOSPHATE INJ 30 MMOL in D5W 500 ML IV ONE (12:14)
[2024-11-10] MEDS: MAGNESIUM OXIDE 400MG TAB (MAG-OX) PO SCH (12:33)
[2024-11-10] MEDS: NEUTRA-PHOS 1.5 GM PACKET PO SCH (12:33)
[2024-11-10 13:48] LABS: PROCALCITONIN 0.19 ng/ml
[2024-11-10] MEDS ORDERED: THIA100TA PO (15:08)
[2024-11-10] MEDS ORDERED: POTA-298 PO (15:08)
[2024-11-10] MEDS ORDERED: FOLI1TAB11 PO (15:08)
[2024-11-10] MEDS ORDERED: ESSETAB4 PO (15:08)
[2024-11-10] MEDS ORDERED: MAGN400T2 PO (15:08)
[2024-11-10] MEDS ORDERED: TALK1KIT MC (15:27)
[2024-11-10] MEDS ORDERED: AMIO100T4 PO (15:27)
[2024-11-10] MEDS ORDERED: BISO5TAB14 PO (15:29)
[2024-11-10 21:40] LABS: IONIZED CALCIUM 4.2 MG/DL (4.5-5.3)
[2024-11-10 22:18] LABS: MAGNESIUM LEVEL 1.7 MG/DL (1.8-2.4); PHOSPHORUS LEVEL 3.7 MG/DL (2.4-5.1)
[2024-11-11] VITALS: BP 136/84; TEMP 98.6; O2SAT 95
[2024-11-11] MEDS: MAG SULF 1GM/100ML (MAG RUN) 1 GM in IV 1 EA IV ONE (02:02)
[2024-11-11 04:00] VITALS: BP 126/84; TEMP 98.2; O2SAT 97
[2024-11-11 04:21] LABS: INR 1.16; PARTIAL THROMBOPLASTIN TIME 29.9 SECONDS (24.8-34.2); PROTHROMBIN TIME 15.1 SECONDS (12.5-14.5)
[2024-11-11 04:24] LABS: HEMOGLOBIN A1c 4.7 % (4.0-6.0)
[2024-11-11 05:00] LABS: ALBUMIN 2.3 G/DL (3.2-5.2); ALKALINE PHOSPHATASE 126 U/L (40-129); ALT/SGPT 38 U/L (7.0-40); AST/SGOT 88 U/L (<34); BILIRUBIN,TOTAL 1.7 MG/DL (0.3-1.2); BLOOD UREA NITROGEN < 5 MG/DL (9-23); CALCIUM LEVEL 7.9 MG/DL (8.3-10.6); CARBON DIOXIDE LEVEL 30 MMOL/L (20-31); CHLORIDE LEVEL 98 MMOL/L (98-107); CHOLESTEROL LEVEL 97 MG/DL (<200); CHOLESTEROL RISK RATIO 4.34 (<5); CREATININE FOR GFR 0.42 MG/DL (0.70-1.30); GLOMERULAR FILTRATION RATE > 60.0 (>49); GLUCOSE, FASTING 108 MG/DL (74-106); HDL CHOLESTEROL 22.3 MG/DL (>40); LDL CHOLESTEROL 56.3 MG/DL (<100); NON-HDL-C 74.7 MG/DL; POTASSIUM SERUM 3.6 MMOL/L (3.5-5.1); SODIUM LEVEL 135 MMOL/L (136-145); TOTAL PROTEIN 5.7 G/DL (5.7-8.2); TRIGLYCERIDES LEVEL 92 MG/DL (<150)
[2024-11-11] MEDS: POTASSIUM CHLORIDE 10% LIQ 20MEQ/15ML UDC PO ONE (05:27)
[2024-11-11] MEDS: KCL 10MEQ/100ML SWI (KRUN) 10 MEQ in IV 1 EA IV SCH (05:28)
[2024-11-11 07:30] VITALS: BP 126/84; TEMP 97.5; O2SAT 97
[2024-11-11] MEDS: MAG SULF 1GM/100ML (MAG RUN) 1 GM in IV 1 EA IV SCH (09:04)
[2024-11-11] MEDS: CALCIUM GLUCONATE 1,000 MG in DEXTROSE 5% (D5W) MINI-BAG PLU 100 ML IV ONE ×2 (09:04→17:48)
[2024-11-11] MEDS ORDERED: POTASSIUM CHLORIDE 10MEQ SR TABLET PO SCH (10:00)
[2024-11-11 10:50] VITALS: BP 117/78; TEMP 97.7; O2SAT 93
[2024-11-11 11:51] LABS: IONIZED CALCIUM 4.4 MG/DL (4.5-5.3)
[2024-11-11 12:17] LABS: MAGNESIUM LEVEL 2.6 MG/DL (1.8-2.4); POTASSIUM SERUM 4.1 MMOL/L (3.5-5.1)
[2024-11-11 12:19] LABS: MB/CK RELATIVE INDEX 0.99 (< OR =4)
[2024-11-11 16:33] LABS: IONIZED CALCIUM 4.2 MG/DL (4.5-5.3)
[2024-11-11] MEDS ORDERED: CALC500T61 PO (16:53)
[2024-11-11 17:02] LABS: CK-MB VALUE MASS 1.2 NG/ML (<3.6); POTASSIUM SERUM 4.4 MMOL/L (3.5-5.1)
[2024-11-11 17:08] LABS: MB/CK RELATIVE INDEX 1.55 (< OR =4)
[2024-11-11 17:43] LABS: PHOSPHORUS LEVEL 3.5 MG/DL (2.4-5.1)
[2024-11-11] MEDS: OYSTER SHELL CALCIUM 500 MG TAB PO SCH (17:46)
[2024-11-11 20:00] VITALS: BP 116/81; TEMP 97.9; O2SAT 93
[2024-11-11 22:00] VITALS: BP 122/84
[2024-11-12 00:24] LABS: CK-MB VALUE MASS < 1.0 NG/ML (<3.6); PHOSPHORUS LEVEL 3.7 MG/DL (2.4-5.1)
[2024-11-12 00:25] LABS: CPK CREATINE PHOSPHOKINASE 68 U/L (46-171); MB/CK RELATIVE INDEX 1.47 (< OR =4)
[2024-11-12 04:00] VITALS: BP 124/81; TEMP 97.9; O2SAT 95
[2024-11-12 05:49] LABS: BASO % 0.2 % (0.0-1.0); EOS % 0.2 % (0.0-3.0); HEMATOCRIT 33.3 % (42.0-52.0); HEMOGLOBIN 11.8 g/dl (13.5-17.5); LYMPH # 1.4 10^3/uL (1.5-5.0); LYMPH % 22.8 % (24.0-44.0); MEAN CORPUSCULAR HEMOGLOBIN 37.8 pg (27.0-33.0); MEAN CORPUSCULAR HGB CONC 35.4 g/dl (32.0-36.5); MEAN CORPUSCULAR VOLUME 106.7 fl (80.0-96.0); MONO # 0.9 10^3/uL (0.0-0.8); MONO % 15.1 % (2.0-8.0); NEUTROPHILS # 3.7 10^3/uL (1.5-8.5); NEUTROPHILS % 61.4 % (36.0-66.0); PLATELET COUNT, AUTOMATED 183 10^3/uL (150-450); RED BLOOD COUNT 3.12 10^6/uL (4.30-6.10)
[2024-11-12 06:19] LABS: MAGNESIUM LEVEL 1.9 MG/DL (1.8-2.4); PHOSPHORUS LEVEL 3.6 MG/DL (2.4-5.1)
[2024-11-12 06:21] LABS: ALBUMIN 2.5 G/DL (3.2-5.2); ALKALINE PHOSPHATASE 133 U/L (40-129); ALT/SGPT 42 U/L (7.0-40); AST/SGOT 76 U/L (<34); BILIRUBIN,TOTAL 1.3 MG/DL (0.3-1.2); BLOOD UREA NITROGEN 7 MG/DL (9-23); CALCIUM LEVEL 8.4 MG/DL (8.3-10.6); CARBON DIOXIDE LEVEL 30 MMOL/L (20-31); CHLORIDE LEVEL 101 MMOL/L (98-107); GLOMERULAR FILTRATION RATE > 60.0 (>49); GLUCOSE, FASTING 91 MG/DL (74-106); SODIUM LEVEL 138 MMOL/L (136-145); TOTAL PROTEIN 6.2 G/DL (5.7-8.2)
[2024-11-12 08:21] LABS: PTH INTACT 29.5 PG/ML (18.5-88.0)
[2024-11-12 08:26] LABS: TOTAL 25(OH) VITAMIN D 5.8 NG/ML (20.0-100.0)
[2024-11-12] MEDS ORDERED: CALCIUM CHLORIDE 10% 1 GM in D5W 100 ML IV ONE (10:00)
[2024-11-12 10:34] VITALS: BP 124/81
[2024-11-12] MEDS: POTASSIUM CHLORIDE 10MEQ SR TABLET PO ONE (10:35)
[2024-11-12] MEDS: MAG SULF 1GM/100ML (MAG RUN) 1 GM in IV 1 EA IV SCH (10:36)
[2024-11-12 12:00] VITALS: BP 123/81; TEMP 97.7; O2SAT 96
[2024-11-12] MEDS: CALCIUM CHLORIDE 10% 1 GM in D5W 100 ML IV ONE (12:18)
[2024-11-12 13:07] LABS: MAGNESIUM LEVEL 2.4 MG/DL (1.8-2.4); PHOSPHORUS LEVEL 3.6 MG/DL (2.4-5.1); POTASSIUM SERUM 3.8 MMOL/L (3.5-5.1)
[2024-11-18] MEDS ORDERED: AMIODARONE 200 MG TAB (PACERONE) PO SCH (09:00)
== END 2024-11-12 14:33 | disposition home or self-care (01) | DRG 201 ==
LOC: M ED 13:08 → M ED INP 16:17 → M ICU 22:00 → M MSPAV 11-11 11:00
PROVIDERS: ADMIT Internal Medicine; ATTEND General Practice
PROC: B246ZZZ Ultrasonography of Right and Left Heart (ICD-10-PCS; principal; 2024-11-09)
PROC: 5A2204Z Restoration of Cardiac Rhythm, Single (ICD-10-PCS; 2024-11-09)
DX: I47.21 Torsades de pointes (principal); E87.20 Acidosis, unspecified; K76.0 Fatty (change of) liver, not elsewhere classified; E83.42 Hypomagnesemia; E83.51 Hypocalcemia; E87.6 Hypokalemia; E80.6 Other disorders of bilirubin metabolism; F10.188 Alcohol abuse with other alcohol-induced disorder; D53.9 Nutritional anemia, unspecified; R74.01 Elevation of levels of liver transaminase levels; J98.11 Atelectasis; Z86.16 Personal history of COVID-19; I47.29 Other ventricular tachycardia

== ENCOUNTER → 2024-11-08 | Outpatient (REF) | payer OTHER ==
[~2024-11-08] MED LIST changes: +AMIO100T4 PO; +BISO5TAB14 PO; +CALC500T61 PO; +ESSETAB4 PO; +FOLI1TAB11 PO; +MAGN400T2 PO; +ONDA-282 PO; -ONDA4TAB6 PO; +POTA-298 PO; +TALK1KIT MC; +THIA100TA PO
== END ==
LOC: M LAB REF 12:07
PROVIDERS: ATTEND Internal Medicine
DX: F10.21 Alcohol dependence, in remission (principal); I50.22 Chronic systolic (congestive) heart failure

== ENCOUNTER → 2024-11-16 | Outpatient (REF) | payer OTHER ==
[~2024-11-16] MED LIST changes: +AMIO100T4 PO; +BISO5TAB14 PO; +CALC500T61 PO; +ESSETAB4 PO; +FOLI1TAB11 PO; +MAGN400T2 PO; +POTA-298 PO; +TALK1KIT MC; +THIA100TA PO
== END ==
LOC: M LAB REF 12:19
PROVIDERS: ATTEND Internal Medicine
DX: E87.1 Hypo-osmolality and hyponatremia (principal); E87.6 Hypokalemia

== ENCOUNTER → 2024-12-26 | Outpatient (REF) | LOC: M PLAIMG 11:08 | PROVIDERS: ATTEND Internal Medicine | DX: M54.9 Dorsalgia, unspecified (principal) ==